=== PATIENT | female | born 1985 | race Caucasian/White ===

== ENCOUNTER 2016-06-05 17:43 | Emergency (ER) ==
[2016-06-05 18:40] LABS: MANUAL DIFF NEEDED? NO
[2016-06-05 18:42] LABS: BASO% 0.3 % (0.0-0.8); EOS# 0.06 X1000 (0.0-0.7); EOS% 0.7 % (0.0-10.0); HEMATOCRIT 44.3 % (37.0-47.0); HEMOGLOBIN 15.4 g/dL (12.0-16.0); IMM GRAN# 0.02 X1000 (0.0-0.04); IMM GRAN% 0.2 % (0.0-0.5); LYMPH# 2.38 X1000 (1.2-3.4); LYMPH% 26.9 % (20.5-51.1); MCH 30.7 PG (27-31); MCHC 34.8 g/dL (33-37); MCV 88.2 FL (81-99); MONO# 0.58 X1000 (0.11-0.59); MONO% 6.6 % (1.7-9.3); MPV 11.5 FL (7.4-10.4); NEUT% 65.3 % (42.2-75.2); PLT 254 X1000 (130-400); RBC 5.02 XMIL (4.2-5.4)
[2016-06-05 18:47] LABS: URINE CULTURE NEEDED? NO; URINE MICRO REVIEW NEEDED? NO; URINE SOURCE CLEAN CATCH
[2016-06-05 18:51] LABS: BILIRUBIN URINE NEGATIVE (NEGATIVE); BLOOD URINE TRACE (NEGATIVE); COLOR YELLOW; GLUCOSE URINE NEGATIVE (NEGATIVE); LEUKOCYTES URINE NEGATIVE (NEGATIVE); NITRITE URINE NEGATIVE (NEGATIVE); PROTEIN URINE NEGATIVE (NEGATIVE); SP GRAVITY URINE 1.019; TURBIDITY URINE CLEAR (CLEAR); UR EPITHELIAL CELLS <10 /HPF (<10); URINE BACTERIA NEGATIVE /HPF; URINE RBC <10 /HPF (<10); URINE WBC <10 /HPF (<10); UROBILINOGEN URINE NORMAL (NORMAL)
[2016-06-05 18:58] LABS: AGAP 12; ALBUMIN 4.5 g/dL (3.5-5.0); ALKALINE PHOSPHATASE 48 U/L (32-104); AMYLASE 78 U/L (20-200); BUN 15 mg/dL (8-22); CHLORIDE 94 mmol/L (98-107); COSMO 267; GOT 25 U/L (10-30); GPT 21 U/L (10-36); LIPASE 47 U/L (13-60); POTASSIUM 3.6 mmol/L (3.5-5.1); SODIUM 133 mmol/L (136-145); TCO2 27 mmol/L (25-35); TOTAL BILIRUBIN 0.33 mg/dL (0.20-1.00); TOTAL PROTEIN 7.9 g/dL (6.3-8.3)
--- NOTE | 2016-06-05 19:03 | PROVIDER DOCUMENTATION ---
HPI-Abdominal Pain/GI Problem - General Chief Complaint: Abdominal Pain Stated Complaint: RT SIDE PAIN Time Seen by Provider: 06/05/16 18:33 Source: patient Allergies/Adverse Reactions: Patient Allergies Allergy/AdvReac Type Severity Reaction Status Date / Time No Known Allergies Allergy Verified 06/05/16 18:57 - History of Present Illness-ABD Nature of Presenting Problems: Pt is a 31 yof who presents to ER with CC of abdominal pain x2 weeks. Pt reports RUQ that radiates to R flank. Pt reports pain is sharp and has been consistent for the past 2 weeks. Pt reports loss of appetite, but no N/V. Pt thought that it was constipation, but she drank Magcitrate with result. Pt also reports that she has been having bm's for the past two days. Abdominal Pain Onset Location: reports: RUQ Pain Radiation: reports: flank (R) Quality of Pain: reports: sharp, stabbing Severity in ED: reports: moderate Onset/Duration: reports: other (x2 weeks) Timing: reports: still present Associated Symptoms: reports: loss of appetite. denies: constipation, diarrhea , nausea, syncope, vomiting, weakness Last BM: this afternoon Review of Systems - Adult - REVIEW OF SYSTEMS - ADULT Constitutional: denies: chills, fever, fatique Eyes: reports: no symptoms reported Ears, Nose, Mouth & Throat: reports: no symptoms reported Cardiovascular: reports: no symptoms reported Respiratory: reports: no symptoms reported Gastrointestinal: reports: abdominal pain, poor appetite. denies: constipation , diarrhea, nausea, vomiting Genitourinary: reports: no symptoms reported Musculoskeletal: reports: no symptoms reported Integumentary: reports: no symptoms reported Neurological: reports: no symptoms reported Psychiatric: reports: no symptoms reported Endocrine: reports: no symptoms reported Hematologic/Lymphatic: reports: no symptoms reported Allergic/Immunologic: reports: no symptoms reported All Other Systems: Reviewed and Negative Past History - Adult - PAST MEDICAL HISTORY-ADULT Review of Records: reports: Nursing Assessment Review, Medications Reviewed - PRIOR SURGERIES/PROCEDURES Surgical/Procedure History: reports: recent surgery, cholecystectomy (04/17/14) - PRIOR HOSPITALIZATIONS Prior Hospitalizations: reports: none - IMMUNIZATION STATUS Childhood Immunizations: See Nurse Assessment Flu Vaccine: See Nurse Assessment Physical Exam-General - PHYSICAL EXAM-ADULT Initial Vital Signs Reviewed: Yes - CONSTITUTIONAL General Appearance: appears well, alert, mild distress - NECK Neck: non-tender, full range of motion, supple - RESPIRATORY Respiratory: chest non-tender, lungs clear, normal breath sounds - CARDIOVASCULAR Cardiovascular: normal peripheral pulses, regular rate, rhythm - GASTROINTESTINAL (ABDOMEN) Abdominal Exam: normal bowel sounds, soft, tenderness (RUQ) - LYMPHATIC Lymphatic: no adenopathy - MUSCULOSKELETAL Back Exam: no vertebral tenderness, CVA tenderness (R) Extremity: normal range of motion, non-tender, normal gait - SKIN Integumentary: normal color, normal turgor, warm/dry - NEUROLOGIC Neurologic: grossly normal, no motor/sensory deficits - PSYCHIATRIC Psych/Mental Status: normal mood/affect, normal thought content, normal thought process, oriented x 3 Progress - PLAN OF CARE/RESULTS Progress/Plan/Lab Results: Vital Signs - 24 hr 06/05/16 17:51 Temperature 97.8 F Pulse Rate 119 H Respiratory 18 Rate Blood Pressure 147/93 O2 Sat by Pulse 100 Oximetry Orders Category Date Time Status Saline Loc DIRECTED Care 06/05/16 18:33 Active NPO Diet 06/05/16 18:33 Active acute [FLAT/UPRIGHT ABD/1 VIEW CHEST] [RAD] Stat Exams 06/05/16 19:00 Taken AMYLASE [CHEM] Stat Lab 06/05/16 17:51 Completed CBC WITH ELECTRONIC DIFF [HEME] Stat Lab 06/05/16 17:51 Completed COMPREHENSIVE METABOLIC PANEL [CHEM] Stat Lab 06/05/16 17:51 Completed LIPASE [CHEM] Stat Lab 06/05/16 17:51 Completed TEST-URINE [PREG] Stat Lab 06/05/16 17:52 Completed URINALYSIS W/POSS RFLX CULT [URINALYSIS] Stat Lab 06/05/16 17:52 Completed Laboratory Tests 06/05/16 06/05/16 06/05/16 17:51 17:51 17:52 WBC 8.85 RBC 5.02 Hgb 15.4 Hct 44.3 MCV 88.2 MCH 30.7 MCHC 34.8 RDW Std Deviation 13.2 Plt Count 254 MPV 11.5 H Immature Gran % (Auto) 0.2 Neut % (Auto) 65.3 Lymph % (Auto) 26.9 [place] % (Auto) 6.6 Eos % (Auto) 0.7 Baso % (Auto) 0.3 Immature Gran # (Auto) 0.02 Neut # (Auto) 5.78 Lymph # (Auto) 2.38 [place] # (Auto) 0.58 Eos # (Auto) 0.06 Baso # (Auto) 0.03 Sodium 133 L Potassium 3.6 Chloride 94 L Carbon Dioxide 27 Anion Gap 12 BUN 15 Creatinine 0.9 Estimated GFR/1.73 m2 > 60 BUN/Creatinine Ratio 17 Glucose 89 Calculated Osmolality 267 Calcium 9.0 Total Bilirubin 0.33 AST 25 ALT 21 Alkaline Phosphatase 48 Total Protein 7.9 Albumin 4.5 Globulin 3.4 Albumin/Globulin Ratio 1.3 Amylase 78 Lipase 47 Urine Source Urine Color Urine Turbidity Urine pH Ur Specific [place] Urine Protein Ur Glucose (Stick) Ur Ketones (Stick) Urine Blood Urine Nitrite Urine Bilirubin Urobilinogen Dipstick Urine Leukocytes Urine WBC (Auto) Urine RBC (Auto) U Epithel Cells (Auto) Urine Bacteria (Auto) Urine Test NEGATIVE 06/05/16 17:52 WBC RBC Hgb Hct MCV MCH MCHC RDW Std Deviation Plt Count MPV Immature Gran % (Auto) Neut % (Auto) Lymph % (Auto) [place] % (Auto) Eos % (Auto) Baso % (Auto) Immature Gran # (Auto) Neut # (Auto) Lymph # (Auto) [place] # (Auto) Eos # (Auto) Baso # (Auto) Sodium Potassium Chloride Carbon Dioxide Anion Gap BUN Creatinine Estimated GFR/1.73 m2 BUN/Creatinine Ratio Glucose Calculated Osmolality Calcium Total Bilirubin AST ALT Alkaline Phosphatase Total Protein Albumin Globulin Albumin/Globulin Ratio Amylase Lipase Urine Source CLEAN CATCH Urine Color YELLOW Urine Turbidity CLEAR Urine pH 6.0 Ur Specific [place] 1.019 Urine Protein NEGATIVE Ur Glucose (Stick) NEGATIVE Ur Ketones (Stick) NEGATIVE Urine Blood TRACE A Urine Nitrite NEGATIVE Urine Bilirubin NEGATIVE Urobilinogen Dipstick NORMAL Urine Leukocytes NEGATIVE Urine WBC (Auto) <10 Urine RBC (Auto) <10 U Epithel Cells (Auto) <10 Urine Bacteria (Auto) NEGATIVE Urine Test - CT/MRI 1 CT Study: Abdomen Impression: See EMR Report CT Results: Constipated Departure - Departure Time of Disposition Order: 19:45 DIAGNOSIS: Constipation Qualifiers: Constipation type: unspecified constipation type Qualified Code(s): K59.00 - Constipation, unspecified Disposition: HOME 01 Certified Medical Emergency: Emergent Condition: Stable Additional Instructions: ED Follow Up Instructions: You have been treated by a care provider in the Emergency Department. These instructions are being provided to you so you can have an understanding of how to care for yourself upon discharge. Upon discharge from the Emergency Department, you are responsible for making arrangements for follow-up care by a physician of your choice. Take all prescribed medications as directed. Return to the Emergency Department immediately for any new or worsening symptoms. You may call the Physician Referral phone number at [phone] to obtain a list of Physicians who are taking new patients. Prescriptions: Polyethylene Glycol 3350 [Miralax] 17 gm PO DAILY #30 [email or web address] Referrals: Noe Barrientos [Primary Care Provider] - Attestation - Scribe Verification/Attestation Scribe:: Prince Thakkar Acting as Scribe for:: Dayron Almonte Scribe documention review:: This chart was documented by a scribe and accurately reflects the service the provider performed and the decisions made by the provider.
[2016-06-05 19:57] VITALS: BP 115/73
--- NOTE | 2016-06-06 08:22 | Diag Imaging Result Document ---
PROCEDURE NAME: FLAT/UPRIGHT ABD/1 VIEW CHEST - 06/05/2016 FLAT AND UPRIGHT AND CHEST, THREE VIEWS: COMPARISON: The chest is compared to 01/14/2016. FINDINGS: The lungs are well expanded. No infiltrates. Prominent scoliosis. No free air beneath the diaphragm. No bowel obstruction. No organomegaly. No abnormal abdominal or pelvic calcifications. IMPRESSION: I do not identify an acute abnormality.
== END 2016-06-05 19:55 | disposition home or self-care (01) ==
LOC: ED 17:43
DX: K59.00 Constipation, unspecified (principal); R10.10 Upper abdominal pain, unspecified; R10.9 Unspecified abdominal pain
CPT/HCPCS: 36415; 74022; 80053; 81001; 81025; 82150; 83690; 85025; 99284